=== PATIENT | male | born 1960 ===

== ENCOUNTER 2024-10-17 10:00 | Inpatient (IN) | payer OTHER ==
[~2024-10-17] VITALS: Ht 175.3 cm; Wt 111.1 kg
[2024-10-23 08:01] LABS: BASO % 0.6 % (0.1-1.2); EOS # 0.15 (0.04-0.54); EOS % 2.1 % (0.7-7.0); LYMPH # 1.81 (1.18-3.74); LYMPH % 25.1 % (19.3-53.1); MEAN PLATELET VOLUME 11.80 fl (9.4-12.4); MONO # 0.65 (0.24-0.82); MONO % 9.0 % (4.7-12.5); NEUT # 4.52 (1.56-6.13); NEUT % 62.8 % (34.0-71.1); RED CELL DISTRIBUTION WIDTH 12.8 % (11.6-14.4)
[2024-10-23 08:03] LABS: URINE APPEARANCE Clear; URINE BILIRRUBIN Negative (NEGATIVE); URINE BLOOD Negative; URINE COLOR Yellow; URINE GLUCOSE Negative (NEGATIVE); URINE KETONE Negative (NEGATIVE); URINE LEUKOCYTE Negative; URINE NITRATE Negative; URINE PROTEIN Negative (NEGATIVE); URINE UROBILINOGEN 0.2 E.U./dl
[2024-10-23 08:04] LABS: URINE EPITHELIAL CELLS 2.9 uL (0.0-38.8); URINE WBC 2.3 uL (0.0-23.2)
[2024-10-23 08:08] LABS: URINE BACTERIA 3.5 uL (0.0-1933); URINE CAST 0.00 uL (0.0-1.40); URINE RBC 1.0 uL (0.0-20.8)
[2024-10-23 08:21] LABS: COVID-19 AG NEGATIVE (NEGATIVE)
[2024-10-23 08:22] LABS: INR 1.06
[2024-10-23 08:40] LABS: BUN CREA RATIO 16.0 (7.0-25.0); CREATININE SERUM 0.93 mg/dL (0.70-1.30); GFR 81.8; GLUCOSE FASTING 127.0 mg/dL (65-100); OSMOLALITY SERUM 284.0 MOSM/KG (275-295)
[2024-10-23] MEDS ORDERED: GLIPIZIDE XL10 MG PO (08:44)
[2024-10-23] MEDS ORDERED: ALPRAZOLAM2 MG (08:46)
[2024-10-23] MEDS ORDERED: GABAPENTIN800 M1 PO (08:46)
[2024-10-23] MEDS ORDERED: TOUJEO MAX300 UNIT/1 (08:48)
[2024-10-23 08:51] VITALS: BP 145/86
[2024-10-23 09:19] LABS: RH POSITIVE
[2024-10-24] MEDS ORDERED: CEFAZOLIN SODIUM 1,000 MG VIAL ONE ×2 (11:28→20:40)
[2024-10-24] MEDS ORDERED: ENOXAPARIN SODIUM 40 MG/0.4 ML SYRINGE SUBCUTANEO ONE (11:29)
[2024-10-24] MEDS ORDERED: BUPIVACAINE HCL 30 ML VIAL IJ ONE (14:30)
[2024-10-24] MEDS ORDERED: SURGIFLO APPLICATOR 1 EACH APPL TOP ONE (14:30)
[2024-10-24] MEDS ORDERED: HEMOSTATIC MATRIX 1 KIT KIT TOP ONE (14:30)
[2024-10-24] MEDS ORDERED: SUGAMMADEX SODIUM 200 MG/2 ML VIAL IV ONE (15:28)
[2024-10-24] MEDS ORDERED: INSULIN LISPRO 1,000 UNIT/10 ML UNITS SUBCUTANEO PRN (17:45)
[2024-10-24] MEDS ORDERED: ONDANSETRON HCL 2 MG/ML VIAL IV PRN (17:45)
[2024-10-24] MEDS ORDERED: DEXTROSE 50 % IN WATER 0.5 G/ML VIAL IV PRN (17:45)
[2024-10-24] MEDS ORDERED: RINGERS SOLUTION,LACTATED 1,000 ML IV SCH (17:45)
[2024-10-24] MEDS ORDERED: MORPHINE SULFATE 4 MG/ML CARTRIDGE IV PRN (17:45)
[2024-10-24] MEDS ORDERED: MORPHINE SULFATE 4 MG/ML VIAL IV ONE ×2 (19:00→20:30)
[2024-10-24] MEDS ORDERED: FAMOTIDINE/PF 20 MG/2 ML VIAL ONE (20:40)
[2024-10-24] MEDS ORDERED: FAMOTIDINE/PF 20 MG/2 ML VIAL IV SCH (21:00)
[2024-10-24] MEDS ORDERED: CEFAZOLIN SODIUM 1,000 MG VIAL IV SCH (21:00)
[2024-10-24] MEDS ORDERED: DOCUSATE SODIUM 100MG CAP PO SCH (21:00)
[2024-10-24 22:10] VITALS: BP 125/96; O2SAT 96
[2024-10-25 00:56] VITALS: BP 126/68; O2SAT 98
[2024-10-25] MEDS ORDERED: GABAPENTIN 300 MG CAPSULE PO SCH (01:00)
[2024-10-25 06:48] LABS: BASO % 0.4 % (0.1-1.2); EOS # 0.02 (0.04-0.54); EOS % 0.2 % (0.7-7.0); LYMPH # 1.43 (1.18-3.74); LYMPH % 13.5 % (19.3-53.1); MEAN PLATELET VOLUME 12.80 fl (9.4-12.4); MONO # 1.14 (0.24-0.82); MONO % 10.8 % (4.7-12.5); NEUT # 7.90 (1.56-6.13); NEUT % 74.8 % (34.0-71.1); RED CELL DISTRIBUTION WIDTH 12.9 % (11.6-14.4)
[2024-10-25 07:26] LABS: BUN CREA RATIO 14.0 (7.0-25.0); CREATININE SERUM 0.96 mg/dL (0.70-1.30); GFR 78.86; GLUCOSE FASTING 109.0 mg/dL (65-100); OSMOLALITY SERUM 282.0 MOSM/KG (275-295)
[2024-10-25 08:00] VITALS: BP 119/61; O2SAT 95
[2024-10-25] MEDS ORDERED: ENOXAPARIN SODIUM 40 MG/0.4 ML SYRINGE SUBCUTANEO SCH (09:00)
== END 2024-10-25 10:28 | disposition home or self-care (01) | DRG 708 ==
LOC: SURH 10-24 07:00 → OB/GYN 10-24 10:00 → SURH 10-24 10:00 → O/R 10-24 12:07 → SURG 10-24 18:56
PROVIDERS: ADMIT Urology; ATTEND Urology
PROC: 8E0W4CZ Robotic Assisted Procedure of Trunk Region, Percutaneous Endoscopic Approach (ICD-10-PCS; 2024-10-24)
PROC: 0VT04ZZ Resection of Prostate, Percutaneous Endoscopic Approach (ICD-10-PCS; principal; 2024-10-24 07:00)
DX: C61 Malignant neoplasm of prostate (principal)
CPT/HCPCS: 55866; S2900